=== PATIENT | female | born 1955 | race Caucasian/White ===

== ENCOUNTER 2018-04-17 19:19 | Inpatient (IN) ==
--- NOTE | 2018-04-17 20:56 | XR ---
EXAM DATE: 04/17/2018 8:51 PM EST AGE/SEX: 62 years / Female INDICATIONS: Pain in foot. Patient had fall. CLINICAL DATA: This is the patient's initial encounter. Patient reports that signs and symptoms have been present for 1 day and indicates a pain score of 9/10. MEDICAL/SURGICAL HISTORY: None. None. COMPARISON: [facility] – [place], TIBIA FIBULA RIGHT 2V, 04/17/2018. . FINDINGS: Bony structures are intact and in normal alignment. There is mild osteopenia and osteoarthritic nunez e. Soft tissues are unremarkable. No radiopaque foreign bodies seen. CONCLUSION: 1. No acute fracture or malalignment. 2. Osteopenia and mild osteoarthritic change. Electronically signed by: Ehsan Owens MD 04/17/2018 8:54 PM EST
--- NOTE | 2018-04-17 20:59 | ED ---
HPI General Chief Complaint: Fall Stated Complaint: Fall Time Seen by Provider: 04/17/18 19:54 Source: patient Mode of arrival: EMS Limitations: no limitations History of Present Illness HPI Narrative: 62-year-old female with history of diabetes and hypothyroidism presents the emergency room for evaluation of right lower extremity pain after mechanical fall just prior to arrival. Patient states she walked on the edge of her pool when her ankle twisted. She slipped and fell into the pool twisting her knee and jamming her right hip. States her pain was so severe that she had to stay in the pool for an hour before her family member came home. She has not been able to put any weight on the leg. Patient states when she tries to move her hip she has a crunching sensation/sound. Pain in the foot is localized to the arch and pain in the ankle is localized to the lateral malleolus. She has some pain in the knee on the lateral aspect. She has not taken anything for symptoms. She was transported via EMS and declined pain medication during transport. Denies paresthesias. MD complaint: Reports fall Onset (ago): hour(s) Fall from: standing Fall witnessed: no Place fall occurred: home Loss of consciousness: none Prolonged down time: no Symptoms prior to fall: Reports none Context: Reports tripped/slipped Location of injury: Reports pelvis Location of injury - extremities: Right: knee, lower leg, ankle and foot Severity: severe Quality: Reports sharp, stabbing and aching Associated symptoms (after fall): Reports denies Related Data Home Medications Medication Instructions Recorded Confirmed atorvastatin 0 mg PO DAILY 04/17/18 04/17/18 glipizide 4 mg PO DAILY 04/17/18 04/17/18 insulin aspart U-100 [Novolog 30 unit SUBCUT TID 04/17/18 04/17/18 U-100 Insulin aspart] insulin degludec [Tresiba 150 unit SUBCUT DAILY 04/17/18 04/17/18 FlexTouch U-100] levothyroxine 250 mcg PO DAILY 04/17/18 04/17/18 losartan 0 mg PO DAILY 04/17/18 04/17/18 metformin 1,000 mg PO BID 04/17/18 04/17/18 Allergies Allergy/AdvReac Type Severity Reaction Status Date / Time No Known Allergies Allergy Verified 04/17/18 20:10 Review of Systems ROS: all other systems reviewed are negative PMFSH Medical History Medical History Diabetes (Acute) Hypocholesteremia (Acute) Hypothyroid (Acute) Social History Social History Substance History: No History of Abuse Second Hand Smoke Exposure: No Smoking Status: Never smoker How Often Do You Have a Drink Containing Alcohol: Never Recent Travel in [facility] within the Last 8 Weeks: No Recent Out of Country Travel within the Last 8 Weeks: No Immunization History Tetanus Immunization: Unsure Exam Narrative Exam Narrative: GENERAL: Well-nourished, well-developed female no acute distress. Afebrile. SKIN: Focused skin assessment warm/dry. Moderate ecchymosis of the right medial foot and right lateral knee. HEAD: Normocephalic. EYES: No scleral icterus. No injection or drainage. NECK: Supple, trachea midline. No JVD or lymphadenopathy. CARDIOVASCULAR: Regular rate and rhythm without murmurs, gallops, or rubs. RESPIRATORY: Breath sounds equal bilaterally. No accessory muscle use. GASTROINTESTINAL: Abdomen soft, non-tender, nondistended. MUSCULOSKELETAL: No cyanosis. Pain with any range of motion of the right lower extremity. Mild tenderness to palpation of the midfoot, lateral malleolus, lateral knee, and lateral hip. 2+ dorsalis pedis pulse in the right. Right leg is slightly externally rotated and slightly shortened. Course Initial Documented Vital Signs Pulse Rate 70 04/17/18 19:45 Respiratory Rate 18 04/17/18 19:45 Blood Pressure 146/86 H 04/17/18 19:45 Pulse Oximetry 98 04/17/18 19:45 Last Documented Vital Signs Pulse Rate 72 04/18/18 06:32 Respiratory Rate 18 04/18/18 06:32 Blood Pressure 128/60 04/18/18 06:32 Pulse Oximetry 98 04/18/18 06:37 Medical Decision Making MDM Narrative Medical decision making narrative: 62-year-old female presents the emergency room for evaluation of right lower extremity pain after chemical fall just prior to arrival. Patient slipped on the side of the pool twisting her ankle, knee, and fell into the pool jamming her right hip. States she has not been able to put any weight on the leg since then. Right lower extremity is neurovascularly intact with 2+ dorsalis pedis pulse. She has limited range of motion of the right lower extremity secondary to pain. She has some moderate edema over the lateral malleolus with ecchymosis of the medial foot and lateral knee. X-rays of the foot, tibia/fibula, and hip are ordered and pending. Patient signed out to nighttime provider. 21:46 PM. Patient was seen by my traffic assistant and signed out to me. I spoke with Dr. Milton Chery, orthopedist weed control inspector. Advise admission and CT scan of the hip and n.p.o. after midnight. Possible surgery in a.m. Medical Screen Exam Complete: Yes Emergency Medical Condition: Yes Differential Diagnosis Differential Diagnosis: Fracture, sprain, strain, contusion, tendon injury Lab Data Result diagrams: 04/18/18 03:54 04/18/18 03:54 Lab Results 04/17/18 04/17/18 04/17/18 Range/Units 21:42 21:42 21:42 WBC 6.2 (4.0-11.0) th/mm3 RBC 3.75 L (4.00-5.30) mil/mm3 Hgb 12.3 (11.6-15.3) gm/dL Hct 35.1 (35.0-46.0) % MCV 93.7 (80.0-100.0) fL MCH 32.8 (27.0-34.0) pg MCHC 35.0 (32.0-36.0) % RDW 13.8 (11.6-17.2) % Plt Count 153 (150-450) th/mm3 MPV 8.6 (7.0-11.0) fL Neut % (Auto) 76.1 H (16.0-70.0) % Lymph % (Auto) 14.7 (9.0-44.0) % [place] % (Auto) 8.2 H (0.0-8.0) % Eos % (Auto) 0.5 (0.0-4.0) % Baso % (Auto) 0.5 (0.0-2.0) % Neut # (Auto) 4.7 (1.8-7.7) th/mm3 Lymph # (Auto) 0.9 L (1.0-4.8) th/mm3 [place] # (Auto) 0.5 (0.0-0.9) th/mm3 Eos # (Auto) 0.0 (0.0-0.4) th/mm3 Baso # (Auto) 0.0 (0.0-0.2) th/mm3 WBC Differential . Differential Comment Auto diff final PT 11.8 H (9.8-11.6) sec INR 1.2 Ratio APTT 23.1 L (23.4-31.7) sec Sodium 142 (136-145) meq/L Potassium 4.1 (3.5-5.1) meq/L Chloride 107 (98-107) meq/L Carbon Dioxide 29.2 (21.0-32.0) meq/L Anion Gap 6 (5-15) meq/L BUN 13 (7-18) mg/dL Creatinine 0.69 (0.50-1.00) mg/dL Estimated GFR 86 L (>89) mL/min Random Glucose 144 H (74-106) mg/dL Calcium 8.8 (8.5-10.1) mg/dL Total Bilirubin 0.7 (0.2-1.0) mg/dL AST 103 H (15-37) U/L ALT 94 H (10-53) U/L Alkaline Phosphatase 129 H (45-117) U/L Total Protein 7.8 (6.4-8.2) g/dL Albumin 3.2 L (3.4-5.0) g/dL Blood Type Blood Type Recheck Antibody Screen 04/17/18 04/18/18 04/18/18 Range/Units 21:42 03:54 03:54 WBC 5.5 (4.0-11.0) th/mm3 RBC 3.86 L (4.00-5.30) mil/mm3 Hgb 12.4 (11.6-15.3) gm/dL Hct 36.7 (35.0-46.0) % MCV 95.3 (80.0-100.0) fL MCH 32.2 (27.0-34.0) pg MCHC 33.8 (32.0-36.0) % RDW 13.6 (11.6-17.2) % Plt Count 152 (150-450) th/mm3 MPV 8.4 (7.0-11.0) fL Neut % (Auto) 58.5 (16.0-70.0) % Lymph % (Auto) 28.8 (9.0-44.0) % [place] % (Auto) 11.0 H (0.0-8.0) % Eos % (Auto) 1.3 (0.0-4.0) % Baso % (Auto) 0.4 (0.0-2.0) % Neut # (Auto) 3.2 (1.8-7.7) th/mm3 Lymph # (Auto) 1.6 (1.0-4.8) th/mm3 [place] # (Auto) 0.6 (0.0-0.9) th/mm3 Eos # (Auto) 0.1 (0.0-0.4) th/mm3 Baso # (Auto) 0.0 (0.0-0.2) th/mm3 WBC Differential . Differential Comment Auto diff final PT 11.8 H (9.8-11.6) sec INR 1.2 Ratio APTT (23.4-31.7) sec Sodium (136-145) meq/L Potassium (3.5-5.1) meq/L Chloride (98-107) meq/L Carbon Dioxide (21.0-32.0) meq/L Anion Gap (5-15) meq/L BUN (7-18) mg/dL Creatinine (0.50-1.00) mg/dL Estimated GFR (>89) mL/min Random Glucose (74-106) mg/dL Calcium (8.5-10.1) mg/dL Total Bilirubin (0.2-1.0) mg/dL AST (15-37) U/L ALT (10-53) U/L Alkaline Phosphatase (45-117) U/L Total Protein (6.4-8.2) g/dL Albumin (3.4-5.0) g/dL Blood Type A Positive Blood Type Recheck Required Antibody Screen Negative 04/18/18 Range/Units 03:54 WBC (4.0-11.0) th/mm3 RBC (4.00-5.30) mil/mm3 Hgb (11.6-15.3) gm/dL Hct (35.0-46.0) % MCV (80.0-100.0) fL MCH (27.0-34.0) pg MCHC (32.0-36.0) % RDW (11.6-17.2) % Plt Count (150-450) th/mm3 MPV (7.0-11.0) fL Neut % (Auto) (16.0-70.0) % Lymph % (Auto) (9.0-44.0) % [place] % (Auto) (0.0-8.0) % Eos % (Auto) (0.0-4.0) % Baso % (Auto) (0.0-2.0) % Neut # (Auto) (1.8-7.7) th/mm3 Lymph # (Auto) (1.0-4.8) th/mm3 [place] # (Auto) (0.0-0.9) th/mm3 Eos # (Auto) (0.0-0.4) th/mm3 Baso # (Auto) (0.0-0.2) th/mm3 WBC Differential Differential Comment PT (9.8-11.6) sec INR Ratio APTT (23.4-31.7) sec Sodium 143 (136-145) meq/L Potassium 3.7 (3.5-5.1) meq/L Chloride 107 (98-107) meq/L Carbon Dioxide 28.6 (21.0-32.0) meq/L Anion Gap 7 (5-15) meq/L BUN 11 (7-18) mg/dL Creatinine 0.53 (0.50-1.00) mg/dL Estimated GFR Greater than 89 (>89) mL/min Random Glucose 85 (74-106) mg/dL Calcium 8.6 (8.5-10.1) mg/dL Total Bilirubin (0.2-1.0) mg/dL AST (15-37) U/L ALT (10-53) U/L Alkaline Phosphatase (45-117) U/L Total Protein (6.4-8.2) g/dL Albumin (3.4-5.0) g/dL Blood Type Blood Type Recheck Antibody Screen Imaging Data Radiologist's impression: Foot X-Ray 04/17/18 20:10 CONCLUSION: 1. No acute fracture or malalignment. 2. Osteopenia and mild osteoarthritic change. Hip X-Ray 04/17/18 20:10 CONCLUSION: Nondisplaced fracture involving the greater trochanteric fragment which extends into the intertrochanteric region. Tibia/Fibula X-Ray 04/17/18 20:10 CONCLUSION: 1. No acute fracture or malalignment. 2. Osteoarthritic change in the knee. Ankle X-Ray 04/17/18 21:07 CONCLUSION: Diffuse soft tissue prominence with no acute fracture or malalignment. Chest X-Ray 04/17/18 21:13 CONCLUSION: No acute cardiopulmonary disease. Hip CT 04/17/18 21:34 CONCLUSION: 1. Nondisplaced fracture through the base of the greater trochanter. 2. Great 1 anterior spondylolisthesis of L5 on S1 of approximately 1 cm with apparent chronic pars defects. Discharge Plan Discharge Disposition Patient Disposition: 30 Still Patient Discharge Details Diagnosis: Fracture of femur, right, closed, Sprain of ankle, right Physicians Team ED Provider: Will Dubose ED Midlevel Provider: Deborah Guzman Primary Care Provider: Marcellus Knight Attending Provider: Vinh Madison Other Providers: Milton Chery Status ED Status: Left Department Discharge Information Discharge Date/Time: 04/18/18 06:50
--- NOTE | 2018-04-17 20:59 | XR ---
EXAM DATE: 04/17/2018 8:52 PM EST AGE/SEX: 62 years / Female INDICATIONS: Pain in right hip. Patient had fall. CLINICAL DATA: This is the patient's initial encounter. Patient reports that signs and symptoms have been present for 1 day and indicates a pain score of 9/10. MEDICAL/SURGICAL HISTORY: None. None. COMPARISON: No prior exams available for comparison. FINDINGS: AP and cross table leg lateral views of the right hip were obtained as well as an AP view of the pelv is. This demonstrating a subtle nondisplaced fracture involving the greater trochanteric fragment whi ch extends into the intertrochanteric region. The femoral head and acetabulum are intact. There is mi ld osteopenia. CONCLUSION: Nondisplaced fracture involving the greater trochanteric fragment which extends into the intertrochan teric region. Electronically signed by: Ehsan Owens MD 04/17/2018 8:57 PM EST
--- NOTE | 2018-04-17 21:00 | XR ---
EXAM DATE: 04/17/2018 8:54 PM EST AGE/SEX: 62 years / Female INDICATIONS: Pain in right tibia/fibula. Patient had fall. CLINICAL DATA: This is the patient's initial encounter. Patient reports that signs and symptoms have been present for 1 day and indicates a pain score of 9/10. MEDICAL/SURGICAL HISTORY: None. None. COMPARISON: No prior exams available for comparison. FINDINGS: Bony structures are intact and in normal alignment. There is mild osteopenia. Degenerative changes ar e noted in the medial compartment the knee with joint space loss, sclerosis and mild spurring. Soft t issues are unremarkable. No radiopaque foreign bodies seen. CONCLUSION: 1. No acute fracture or malalignment. 2. Osteoarthritic change in the knee. Electronically signed by: Ehsan Owens MD 04/17/2018 8:58 PM EST
--- NOTE | 2018-04-17 21:36 | XR ---
EXAM DATE: 04/17/2018 9:33 PM EST AGE/SEX: 62 years / Female INDICATIONS: Evaluate for pneumonia, pneumothorax, or communicable disease. Pre-op right hip surgery . CLINICAL DATA: This is the patient's initial encounter. Patient reports that signs and symptoms have been present for 1 day and indicates a pain score of 0/10. MEDICAL/SURGICAL HISTORY: None. None. COMPARISON: No prior exams available for comparison. FINDINGS: A single AP view of the chest demonstrates the lungs to be symmetrically aerated without evidence of mass, infiltrate or effusion. The cardiomediastinal contours are unremarkable. Osseous structures a re intact. There are multiple overlying electrocardiogram leads. CONCLUSION: No acute cardiopulmonary disease. Electronically signed by: Ehsan Owens MD 04/17/2018 9:34 PM EST
--- NOTE | 2018-04-17 21:42 | XR ---
EXAM DATE: 04/17/2018 9:37 PM EST AGE/SEX: 62 years / Female INDICATIONS: Right lateral ankle pain post fall today CLINICAL DATA: This is the patient's initial encounter. Patient reports that signs and symptoms have been present for 1 day and indicates a pain score of 8/10. MEDICAL/SURGICAL HISTORY: None. None. COMPARISON: [facility], FOOT COMPLETE RIGHT 3V, 04/17/2018. . FINDINGS: Bony structures are intact and in normal alignment. Joints are intact without dislocation or signifi cant arthropathy. Osseous density is normal. There is diffuse soft tissue prominence. No radiopaque foreign bodies seen. CONCLUSION: Diffuse soft tissue prominence with no acute fracture or malalignment. Electronically signed by: Ehsan Owens MD 04/17/2018 9:40 PM EST
[2018-04-17 22:04] LABS: Baso % (Auto) 0.5 % (0.0-2.0); Eos % (Auto) 0.5 % (0.0-4.0); Hematocrit 35.1 % (35.0-46.0); Hemoglobin 12.3 gm/dL (11.6-15.3); Lymph # (Auto) 0.9 th/mm3 (1.0-4.8); Lymph % (Auto) 14.7 % (9.0-44.0); Mean Corpuscular Hemoglobin 32.8 pg (27.0-34.0); Mean Corpuscular Volume 93.7 fL (80.0-100.0); Mean Platelet Volume 8.6 fL (7.0-11.0); Mono # (Auto) 0.5 th/mm3 (0.0-0.9); Mono % (Auto) 8.2 % (0.0-8.0); Neut # (Auto) 4.7 th/mm3 (1.8-7.7); Neut % (Auto) 76.1 % (16.0-70.0); Platelet Count 153 th/mm3 (150-450); Red Blood Count 3.75 mil/mm3 (4.00-5.30); Red Cell Distribution Width 13.8 % (11.6-17.2); White Blood Count 6.2 th/mm3 (4.0-11.0)
[2018-04-17 22:14] LABS: Activated Partial Thrombo Time 23.1 sec (23.4-31.7); INR 1.2 Ratio; Prothrombin Time 11.8 sec (9.8-11.6)
[2018-04-17] MEDS ORDERED: Acetaminophen 325 MG Tablet PO PRN (22:18)
--- NOTE | 2018-04-17 22:22 | CT ---
EXAM DATE: 04/17/2018 10:15 PM EST AGE/SEX: 62 years / Female INDICATIONS: Trauma; fall. Right hip fracture. CLINICAL DATA: This is the patient's initial encounter. Patient reports that signs and symptoms have been present for 1 day and indicates a pain score of 6/10. MEDICAL/SURGICAL HISTORY: Diabetes. Hypothyroidism. None. RADIATION DOSE: 31.71 CTDI (mGy) COMPARISON: [facility], HIP RIGHT W AP PELVIS 2V, 04/17/2018. . TECHNIQUE: Multiple contiguous axial images were acquired using a multirow detector CT scanner witho ut contrast. Multiplanar reconstruction was performed in the sagittal and coronal planes. Using aut omated exposure control and adjustment of the mA and/or kV according to patient size, radiation dose was kept as low as reasonably achievable to obtain optimal diagnostic quality images. DICOM format i mage data is available electronically for review and comparison. FINDINGS: Bones: Again noted is a subtle nondisplaced fracture extending through the base of the greater troch anter. The femoral head and acetabulum are intact. The sacrum is intact. There is a grade 1 anterior spondylolisthesis of L5 on S1 of approximately 1 cm with apparent chronic pars defects.. Joints: No significant arthropathy or bony hypertrophy is seen. The articular surface of the femora l head is smooth. Soft Tissues: Unremarkable for a non-contrast study. Other: No foreign bodies seen. CONCLUSION: 1. Nondisplaced fracture through the base of the greater trochanter. 2. Great 1 anterior spondylolisthesis of L5 on S1 of approximately 1 cm with apparent chronic pars d efects. Electronically signed by: Ehsan Owens MD 04/17/2018 10:20 PM EST
[2018-04-17] MEDS ORDERED: Dextrose 50% in Water 50 ML Vial IV.PUSH PRN (22:25)
[2018-04-17 22:27] LABS: Alanine Aminotransferase 94 U/L (10-53); Albumin 3.2 g/dL (3.4-5.0); Anion Gap 6 meq/L (5-15); Aspartate Aminotransferase 103 U/L (15-37); Blood Urea Nitrogen 13 mg/dL (7-18); Calcium 8.8 mg/dL (8.5-10.1); Carbon Dioxide 29.2 meq/L (21.0-32.0); Chloride 107 meq/L (98-107); Glomerular Filtration Rate 86 mL/min (>89); Glucose,Random 144 mg/dL (74-106); Potassium 4.1 meq/L (3.5-5.1); Sodium 142 meq/L (136-145)
[2018-04-17 22:28] LABS: Alkaline Phosphatase 129 U/L (45-117); Total Protein 7.8 g/dL (6.4-8.2)
[2018-04-17] MEDS ORDERED: HYDROmorphone PF Inj 1 MG/ML Ampul IV.PUSH PRN (22:32)
[2018-04-17] MEDS: KCL 20 mEq/NACL 0.45% Inj 1,000 ML IV.CONT SCH (23:55)
[2018-04-18 04:30] LABS: Baso % (Auto) 0.4 % (0.0-2.0); Eos # (Auto) 0.1 th/mm3 (0.0-0.4); Eos % (Auto) 1.3 % (0.0-4.0); Hematocrit 36.7 % (35.0-46.0); Hemoglobin 12.4 gm/dL (11.6-15.3); Lymph # (Auto) 1.6 th/mm3 (1.0-4.8); Lymph % (Auto) 28.8 % (9.0-44.0); Mean Corpuscular HGB Conc 33.8 % (32.0-36.0); Mean Corpuscular Hemoglobin 32.2 pg (27.0-34.0); Mean Corpuscular Volume 95.3 fL (80.0-100.0); Mean Platelet Volume 8.4 fL (7.0-11.0); Mono # (Auto) 0.6 th/mm3 (0.0-0.9); Neut # (Auto) 3.2 th/mm3 (1.8-7.7); Neut % (Auto) 58.5 % (16.0-70.0); Platelet Count 152 th/mm3 (150-450); Red Blood Count 3.86 mil/mm3 (4.00-5.30); Red Cell Distribution Width 13.6 % (11.6-17.2); White Blood Count 5.5 th/mm3 (4.0-11.0)
[2018-04-18 04:40] LABS: INR 1.2 Ratio; Prothrombin Time 11.8 sec (9.8-11.6)
[2018-04-18 04:52] LABS: Anion Gap 7 meq/L (5-15); Blood Urea Nitrogen 11 mg/dL (7-18); Calcium 8.6 mg/dL (8.5-10.1); Carbon Dioxide 28.6 meq/L (21.0-32.0); Chloride 107 meq/L (98-107); Glomerular Filtration Rate Greater Than 89 mL/min (>89); Glucose,Random 85 mg/dL (74-106); Potassium 3.7 meq/L (3.5-5.1); Sodium 143 meq/L (136-145)
[2018-04-18] MEDS: Levothyroxine 100 MCG Tablet PO SCH (07:45)
[2018-04-18] MEDS: Senna/Docusate Sodium 8.6/50 MG Tablet PO SCH ×2 (09:00→21:18)
--- NOTE | 2018-04-18 09:29 | P.HPIM ---
History of Present Illness Primary Care Physician: Marcellus Knight History of Present Illness: This a 62-year-old female patient with a past medical history which includes cervical radiculopathy, chronic pain, degenerative disc disease, diverticulosis, endometrial hyperplasia, female stress incontinence, Mary Kate's thyroiditis, hyperlipidemia, known alcoholic hepatosteatosis and type 2 diabetes mellitus. Patient was in her normal state of health until mechanical fall. Patient states she walked on the edge of her pool when her ankle twisted. She slipped and fell into the pool twisting her knee and jamming her right hip. States her pain was so severe that she had to stay in the pool for an hour before her family member came home. She has not been able to put any weight on the leg. Patient states when she tries to move her hip she has a crunching sensation/sound. Pain in the foot is localized to the arch and pain in the ankle is localized to the lateral malleolus. She has some pain in the knee on the lateral aspect. She has not taken anything for symptoms. She was transported via EMS and declined pain medication during transport. Denies paresthesias. Patient also denies fevers chills nausea vomiting diarrhea constipation shortness of breath or chest pain. PMH: cervical radiculopathy, chronic pain, degenerative disc disease, diverticulosis , endometrial hyperplasia, female stress incontinence, Mary Kate's thyroiditis, hyperlipidemia, known alcoholic hepatosteatosis and type 2 diabetes mellitus PSxH: Cholecystectomy, colonoscopy, D&C, cervical spine and injection, tubal ligation , varicose vein ligation FMH: Reviewed and noncontributory Social history: Currently lives in a private residence Rare EtOH use Denies tobacco use Inpatient Certification Inpatient Certification: I certify that the inpatient services were ordered in accordance with Medicare regulations governing the order. This includes certification that hospital inpatient services are reasonable and necessary and in the case of services not specified as inpatient-only under 42 CFR 419.22(n), that they are appropriately provided as inpatient services in accordance to with the 2-midnight benchmark under 43 CFR 412.3(e) Estimated Total Length of Stay (Days): 3 Plans for Post Hospital Care: Not yet determined Medications and Allergies Allergies Allergy/AdvReac Type Severity Reaction Status Date / Time No Known Allergies Allergy Verified 04/17/18 20:10 Home Medications Medication Instructions Recorded Confirmed Type atorvastatin 80 mg PO DAILY 04/17/18 04/18/18 History glipizide 4 mg PO DAILY 04/17/18 04/17/18 History insulin aspart U-100 [Novolog 30 unit SUBCUT TID 04/17/18 04/17/18 History U-100 Insulin aspart] insulin degludec [Tresiba 150 unit SUBCUT DAILY 04/17/18 04/17/18 History FlexTouch U-100] levothyroxine 200 mcg PO DAILY 04/17/18 04/18/18 History losartan 50 mg PO DAILY 04/17/18 04/18/18 History metformin 1,000 mg PO BID 04/17/18 04/17/18 History Active Medications: Active Medications Acetaminophen (Tylenol) 650 mg PO Q4H PRN PRN Reason: Temp > 100.4 Hydrocodone Bitart/Acetaminophen ([place] 5/325) 1 tab PO Q4H PRN PRN Reason: PAIN SCALE 1 TO 5 Al Hydroxide/Mg Hydroxide (Milk Of Magnesia Liq) 30 ml PO Q12H PRN PRN Reason: Mild Constipation Atorvastatin Calcium (Lipitor) 20 mg PO DAILY [facility] Dextrose (D50w Vial) 50 ml IV.PUSH UNSCH PRN PRN Reason: PER HYPOGLYCEMIA PROTOCOL Glucagon (Glucagon Inj) 1 mg OTHER PRN PRN PRN Reason: for Hypoglycemia Protocol Hydromorphone HCl (Dilaudid Pf Inj) 0.5 mg IV.PUSH Q4H PRN PRN Reason: PAIN SCALE 6 TO 10 Potassium Chloride/Sodium Chloride (Potassium Chlor 20 Meq/Nacl 0.45% Inj) 1, 000 mls @ 84 mls/hr IV.CONT .[id number] [facility] Last Admin: 04/17/18 23:55 Dose: Not Given Insulin Aspart (Novolog Insulin Correctional Sugar Inj) 0 unit SQ ACHS [facility]; Protocol Levothyroxine Sodium (Synthroid) 250 mcg PO DAILY@0600 [facility] Losartan Potassium (Cozaar) 25 mg PO DAILY [facility] Miscellaneous (Pill Splitter) 1 each OTHER UNSCH PRN PRN Reason: SEE LABEL COMMENTS Ondansetron HCl (Zofran Inj) 4 mg IV.PUSH Q6H PRN PRN Reason: NAUSEA OR VOMITING Senna/Docusate Sodium (Guerline-Colace) 1 tab PO BID [facility] Sodium Chloride (Ns Flush) 2 ml IV.FLUSH PRN PRN PRN Reason: FLUSH AFTER USING IV ACCESS Physical Exam Vital signs: Last Vital Signs Pulse 72 04/18/18 06:32 Resp 18 04/18/18 06:32 BP 128/60 04/18/18 06:32 Pulse Ox 98 04/18/18 06:37 Narrative: GENERAL: This is a well-nourished, well-developed patient, in no apparent distress. CARDIOVASCULAR: Regular rate and rhythm without murmurs, gallops, or rubs. RESPIRATORY: Clear to auscultation. Breath sounds equal bilaterally. No wheezes , rales, or rhonchi. GASTROINTESTINAL: Abdomen soft, non-tender, nondistended. Normal active bowel sounds MUSCULOSKELETAL: NEURO: Alert & Oriented Results Labs CBC & Chem 7: 04/18/18 03:54 04/18/18 03:54 Caprini VTE Risk Assessment Caprini VTE Risk Assessment: Moderate/High Risk (score >= 2) Caprini Risk Assessment Model: Point Value = 1 Point Value = 2 Point Value = 3 Point Value = 5 Age 41-60 Minor surgery BMI > 25 kg/m2 Swollen legs Varicose veins or History of unexplained or recurrent spontaneous Oral contraceptives or hormone replacement Sepsis (< 1 month) Serious lung disease, including pneumonia (< 1 month) Abnormal pulmonary function Acute myocardial infarction Congestive heart failure (< 1 month) History of inflammatory bowel disease Medical patient at bed rest Age 61-74 Arthroscopic surgery Major open surgery (> 45 min) Laparoscopic surgery (> 45 min) Malignancy Confined to bed (> 72 hours) Immobilizing plaster cast Central venous access Age >= 75 History of VTE Family history of VTE Factor V Leiden Prothrombin [id number] Lupus anticoagulant Anticardiolipin antibodies Elevated serum homocysteine Heparin-induced thrombocytopenia Other congenital or acquired thrombophilia Stroke (< 1 month) Elective arthroplasty Hip, pelvis, or leg fracture Acute spinal cord injury (< 1 month) Prophylaxis Regimen: Total Risk Factor Score Risk Level Prophylaxis Regimen 0-1 Low Early ambulation 2 Moderate Order ONE of the following: *Sequential Compression Device (SCD) *Heparin 5000 units SQ BID 3-4 Higher Order ONE of the following medications: *Heparin 5000 units SQ TID *Enoxaparin/Lovenox 40 mg SQ daily (WT < 150 kg, CrCl > 30 mL/min) *Enoxaparin/Lovenox 30 mg SQ daily (WT < 150 kg, CrCl > 10-29 mL/min) *Enoxaparin/Lovenox 30 mg SQ BID (WT < 150 kg, CrCl > 30 mL/min) AND/OR *Sequential Compression Device (SCD) 5 or more Highest Order ONE of the following medications: *Heparin 5000 units SQ TID (Preferred with Epidurals) *Enoxaparin/Lovenox 40 mg SQ daily (WT < 150 kg, CrCl > 30 mL/min) *Enoxaparin/Lovenox 30 mg SQ daily (WT < 150 kg, CrCl > 10-29 mL/min) *Enoxaparin/Lovenox 30 mg SQ BID (WT < 150 kg, CrCl > 30 mL/min) AND *Sequential Compression Device (SCD) Assessment and Plan Plan This a 62-year-old female patient with a past medical history which includes cervical radiculopathy, chronic pain, degenerative disc disease, diverticulosis , female stress incontinence, Mary Kate's thyroiditis, hyperlipidemia, nonalcoholic hepatosteatosis and type 2 diabetes mellitus. Patient was in her normal state of health until mechanical fall. Patient states she walked on the edge of her pool when her ankle twisted. She slipped and fell into the pool twisting her knee and jamming her right hip. States her pain was so severe that she had to stay in the pool for an hour before her family member came home. She has not been able to put any weight on the leg. R femur fracture Foot X-Ray 04/17/18 1. No acute fracture or malalignment. 2. Osteopenia and mild osteoarthritic change. Hip X-Ray 04/17/18 Nondisplaced fracture involving the greater trochanteric fragment which extends into the intertrochanteric region. Tibia/Fibula X-Ray 04/17/18 1. No acute fracture or malalignment. 2. Osteoarthritic change in the knee. Ankle X-Ray 04/17/18 Diffuse soft tissue prominence with no acute fracture or malalignment. Hip CT 04/17/18 1. Nondisplaced fracture through the base of the greater trochanter. 2. Great 1 anterior spondylolisthesis of L5 on S1 of approximately 1 cm with apparent chronic pars defects. NPO Consult to Orthopedic surgery Mary Kate's thyroiditis Continue home Synthroid 200 mcg daily Hyperlipidemia Continue home atorvastatin 80 mg at bedtime Diabetes mellitus type 2 At home patient takes Amaryl 5 mg at bedtime and metformin 1000 mg twice daily we will hold oral diabetic medication at this time Patient also takes NovoLog 30 units subcu 3 times daily and [employer] 150 units subcu daily will hold at this time as patient is NPO Accu-Cheks AC at bedtime with sliding scale insulin coverage
[2018-04-18] MEDS: Insulin NovoLOG Aspart Correctional Sugar Inj SQ SCH ×5 (09:49→21:18)
--- NOTE | 2018-04-18 10:28 | ECG ---
Date Performed: 04/17/2018 Time Performed: 21:30:57 PTAGE: 62 years EKG: Sinus rhythm NORMAL ECG NO PREVIOUS TRACING DOCTOR: Phan Arteaga Interpretating Date/Time 04/18/2018 10:26:56
[2018-04-18] MEDS: KCL 20 mEq/NACL 0.45% Inj 1,000 ML IV.CONT SCH (10:40)
--- NOTE | 2018-04-18 12:41 | P.CONOP ---
[facility] Orthopedics Consult Note - [facility] Consult date: 04/18/18 Requesting physician: Marge Arias Consult reason: fracture Chief complaint: Fracture Right Femur Narrative: History of Present Illness: This a 62-year-old female patient with a past medical history which includes cervical radiculopathy, chronic pain, degenerative disc disease, diverticulosis, endometrial hyperplasia, female stress incontinence, Mary Kate's thyroiditis, hyperlipidemia, known alcoholic hepatosteatosis and type 2 diabetes mellitus. Patient was in her normal state of health until mechanical fall. Patient states she walked on the edge of her pool when her ankle twisted. She slipped and fell into the pool twisting her knee and jamming her right hip. States her pain was so severe that she had to stay in the pool for an hour before her family member came home. She has not been able to put any weight on the leg. Patient states when she tries to move her hip she has a crunching sensation/sound. Pain in the foot is localized to the arch and pain in the ankle is localized to the lateral malleolus. She has some pain in the knee on the lateral aspect. She has not taken anything for symptoms. She was transported via EMS and declined pain medication during transport. Denies paresthesias. Patient also denies fevers chills nausea vomiting diarrhea constipation shortness of breath or chest pain. I have been asked to see the patient in consultation regarding her right hip fracture Review of Systems All other systems reviewed negative except as stated in [facility] - History History Provided By: Patient - Medical History Medical History: Medical History (Last Reviewed 04/18/18 @ 10:37 by Cecelia Lopez) Diabetes Hypocholesteremia Hypothyroid - Tobacco History Second Hand Smoke Exposure: No Smoking Status: Never smoker - Alcohol History How Often Do You Have a Drink Containing Alcohol: Never - Substance Use History Substance History: No History of Abuse - Travel History Recent Travel in the [place] Within the Last 8 Weeks: No Recent Travel Out of the Country Within the Last 8 Weeks: No - Immunization History Tetanus Immunization: Unsure Hx Influenza Vaccine This Season: Yes Medications and Allergies Active Medications: Active Medications Acetaminophen (Tylenol) 650 mg PO Q4H PRN PRN Reason: Temp > 100.4 Hydrocodone Bitart/Acetaminophen ([place] 5/325) 1 tab PO Q4H PRN PRN Reason: PAIN SCALE 1 TO 5 Al Hydroxide/Mg Hydroxide (Milk Of Annabel Hung) 30 ml PO Q12H PRN PRN Reason: Mild Constipation Atorvastatin Calcium (Lipitor) 20 mg PO DAILY [facility] Last Admin: 04/18/18 09:00 Dose: Not Given Dextrose (D50w Vial) 50 ml IV.PUSH UNSCH PRN PRN Reason: PER HYPOGLYCEMIA PROTOCOL Glucagon (Glucagon Inj) 1 mg OTHER PRN PRN PRN Reason: for Hypoglycemia Protocol Hydromorphone HCl (Dilaudid Pf Inj) 0.5 mg IV.PUSH Q4H PRN PRN Reason: PAIN SCALE 6 TO 10 Potassium Chloride/Sodium Chloride (Potassium Chlor 20 Meq/Nacl 0.45% Inj) 1, 000 mls @ 84 mls/hr IV.CONT .[id number] [facility] Last Admin: 04/17/18 23:55 Dose: Not Given Insulin Aspart (Novolog Insulin Correctional Sugar Inj) 0 unit SQ ACHS [facility]; Protocol Last Admin: 04/18/18 09:49 Dose: Not Given Levothyroxine Sodium (Synthroid) 250 mcg PO DAILY@0600 [facility] Last Admin: 04/18/18 07:45 Dose: Not Given Losartan Potassium (Cozaar) 25 mg PO DAILY [facility] Last Admin: 04/18/18 09:00 Dose: Not Given Miscellaneous (Pill Splitter) 1 each OTHER UNSCH PRN PRN Reason: SEE LABEL COMMENTS Ondansetron HCl (Zofran Inj) 4 mg IV.PUSH Q6H PRN PRN Reason: NAUSEA OR VOMITING Senna/Docusate Sodium (Guerline-Colace) 1 tab PO BID [facility] Last Admin: 04/18/18 09:00 Dose: Not Given Sodium Chloride (Ns Flush) 2 ml IV.FLUSH PRN PRN PRN Reason: FLUSH AFTER USING IV ACCESS Allergies Allergy/AdvReac Type Severity Reaction Status Date / Time No Known Allergies Allergy Verified 04/17/18 20:10 Home Medications Medication Instructions Recorded Confirmed Type atorvastatin 80 mg PO DAILY 04/17/18 04/18/18 History glipizide 4 mg PO DAILY 04/17/18 04/17/18 History insulin aspart U-100 [Novolog 30 unit SUBCUT TID 04/17/18 04/17/18 History U-100 Insulin aspart] insulin degludec [Tresiba 150 unit SUBCUT DAILY 04/17/18 04/17/18 History FlexTouch U-100] levothyroxine 200 mcg PO DAILY 04/17/18 04/18/18 History losartan 50 mg PO DAILY 04/17/18 04/18/18 History metformin 1,000 mg PO BID 04/17/18 04/17/18 History Exam Vital signs: Vital Signs 04/17/18 19:45 04/18/18 00:36 04/18/18 06:32 Temperature Pulse Rate 70 69 72 Respiratory Rate 18 18 Blood Pressure 146/86 H 121/57 L 128/60 Pulse Oximetry 98 98 04/18/18 06:37 04/18/18 08:00 04/18/18 12:00 Temperature 99.0 F 99.1 F Pulse Rate 69 76 Respiratory Rate 18 18 Blood Pressure 121/59 L 123/60 Pulse Oximetry 98 93 L 95 Intake & Output 04/17/18 04/18/18 04/18/18 18:59 06:59 18:59 Output Total 200 / 200 Balance -200 / -200 Weight 99.79 kg 99.79 kg Output: Urine 200 / 200 Other: # Voids 1 Weight On Admission 99.79 kg Narrative: HEENT: Normocephalic atraumatic pupils equal round reactive. NECK: Supple. No abnormal masses. Full range of motion. CHEST: Clear to auscultation with no rales or rhonchi's or wheezes. HEART: Regular rate and rhythm. No murmurs. ABDOMEN: Soft, nontender, no masses. Normal active bowel sounds. GENITOURINARY: Deferred. MUSCULOSKELETAL: Right hip is not in [place]'s traction. Mild swelling. Mild pain with range of motion. No significant ecchymosis. No skin breakdown. No calf tenderness. Dorsalis pedis 1+. Sensation is normal. Results - Labs Result Diagrams: 04/18/18 03:54 04/18/18 03:54 Labs: Laboratory Results - last 24 hr 04/17/18 04/17/18 04/17/18 21:42 21:42 21:42 WBC 6.2 RBC 3.75 L Hgb 12.3 Hct 35.1 MCV 93.7 MCH 32.8 MCHC 35.0 RDW 13.8 Plt Count 153 MPV 8.6 Neut % (Auto) 76.1 H Lymph % (Auto) 14.7 [place] % (Auto) 8.2 H Eos % (Auto) 0.5 Baso % (Auto) 0.5 Neut # (Auto) 4.7 Lymph # (Auto) 0.9 L [place] # (Auto) 0.5 Eos # (Auto) 0.0 Baso # (Auto) 0.0 WBC Differential . Differential Comment Auto diff final PT 11.8 H INR 1.2 APTT 23.1 L Sodium 142 Potassium 4.1 Chloride 107 Carbon Dioxide 29.2 Anion Gap 6 BUN 13 Creatinine 0.69 Estimated GFR 86 L POC Glucose Random Glucose 144 H Calcium 8.8 Total Bilirubin 0.7 AST 103 H ALT 94 H Alkaline Phosphatase 129 H Total Protein 7.8 Albumin 3.2 L Blood Type Blood Type Recheck Antibody Screen 04/17/18 04/18/18 04/18/18 21:42 03:54 03:54 WBC 5.5 RBC 3.86 L Hgb 12.4 Hct 36.7 MCV 95.3 MCH 32.2 MCHC 33.8 RDW 13.6 Plt Count 152 MPV 8.4 Neut % (Auto) 58.5 Lymph % (Auto) 28.8 [place] % (Auto) 11.0 H Eos % (Auto) 1.3 Baso % (Auto) 0.4 Neut # (Auto) 3.2 Lymph # (Auto) 1.6 [place] # (Auto) 0.6 Eos # (Auto) 0.1 Baso # (Auto) 0.0 WBC Differential . Differential Comment Auto diff final PT 11.8 H INR 1.2 APTT Sodium Potassium Chloride Carbon Dioxide Anion Gap BUN Creatinine Estimated GFR POC Glucose Random Glucose Calcium Total Bilirubin AST ALT Alkaline Phosphatase Total Protein Albumin Blood Type A Positive Blood Type Recheck Required Antibody Screen Negative 04/18/18 04/18/18 04/18/18 03:54 09:19 12:20 WBC RBC Hgb Hct MCV MCH MCHC RDW Plt Count MPV Neut % (Auto) Lymph % (Auto) [place] % (Auto) Eos % (Auto) Baso % (Auto) Neut # (Auto) Lymph # (Auto) [place] # (Auto) Eos # (Auto) Baso # (Auto) WBC Differential Differential Comment PT INR APTT Sodium 143 Potassium 3.7 Chloride 107 Carbon Dioxide 28.6 Anion Gap 7 BUN 11 Creatinine 0.53 Estimated GFR Greater than 89 POC Glucose 122 H 103 Random Glucose 85 Calcium 8.6 Total Bilirubin AST ALT Alkaline Phosphatase Total Protein Albumin Blood Type Blood Type Recheck Antibody Screen - Diagnostic results Imaging: Impressions Foot X-Ray 04/17/18 20:10 CONCLUSION: 1. No acute fracture or malalignment. 2. Osteopenia and mild osteoarthritic change. Hip X-Ray 04/17/18 20:10 CONCLUSION: Nondisplaced fracture involving the greater trochanteric fragment which extends into the intertrochanteric region. Tibia/Fibula X-Ray 04/17/18 20:10 CONCLUSION: 1. No acute fracture or malalignment. 2. Osteoarthritic change in the knee. Ankle X-Ray 04/17/18 21:07 CONCLUSION: Diffuse soft tissue prominence with no acute fracture or malalignment. Chest X-Ray 04/17/18 21:13 CONCLUSION: No acute cardiopulmonary disease. Hip CT 04/17/18 21:34 CONCLUSION: 1. Nondisplaced fracture through the base of the greater trochanter. 2. Great 1 anterior spondylolisthesis of L5 on S1 of approximately 1 cm with apparent chronic pars defects. There is evidence of an extended greater trochanteric fracture but no clear evidence of an intertrochanteric fracture or extending through the base of the femoral neck or into the subtrochanteric region. This appears to be an isolated greater trochanteric fracture without displacement Assessment and Plan - Assessment and Plan Right hip greater trochanteric fracture. PLAN: Nonweightbearing right leg. This patient is at risk of developing an unstable peritrochanteric fracture which may require internal fixation. Her present fracture is stable and does not require internal fixation. We will watch this closely. If fracture displaces or the patient develops a unstable intertrochanteric fracture, surgical treatment in a delayed fashion may be necessary. Follow-up in 2 weeks
--- NOTE | 2018-04-18 17:01 | P.DS ---
DS: Providers Date of admission: 04/17/18 22:04 Primary care physician: Marcellus Knight Consults: 04/17/18 21:53 Consult to Orthopedic Surgery Routine Consulting Provider: Milton Chery Reason for Consultation: Fracture right femur Notified:: Service Spoke with:: SIA Date Notified:: 04/18/18 Time Notified:: 00:23 Comments:: DELAY DUE TO NOT POPULATING TO PC REQUEST - HAD TO PRINT OM INCOMPLETE LIST THEN NO ANSWER AT CALL CENTER SIA WILL SENT AT 0600 Ordering Provider: CASSIDY DS: Diagnosis Discharge Diagnosis (1) Fracture of femur, right, closed: Status: Acute (2) Sprain of ankle, right: Status: Acute DS: Summary This a 62-year-old female patient with a past medical history which includes cervical radiculopathy, chronic pain, degenerative disc disease, diverticulosis , female stress incontinence, Mary Kate's thyroiditis, hyperlipidemia, nonalcoholic hepatosteatosis and type 2 diabetes mellitus. Patient was in her normal state of health until mechanical fall. Patient states she walked on the edge of her pool when her ankle twisted. She slipped and fell into the pool twisting her knee and jamming her right hip. States her pain was so severe that she had to stay in the pool for an hour before her family member came home. She has not been able to put any weight on the leg. R femur fracture Foot X-Ray 04/17/18 1. No acute fracture or malalignment. 2. Osteopenia and mild osteoarthritic change. Hip X-Ray 04/17/18 Nondisplaced fracture involving the greater trochanteric fragment which extends into the intertrochanteric region. Tibia/Fibula X-Ray 04/17/18 1. No acute fracture or malalignment. 2. Osteoarthritic change in the knee. Ankle X-Ray 04/17/18 Diffuse soft tissue prominence with no acute fracture or malalignment. Hip CT 04/17/18 1. Nondisplaced fracture through the base of the greater trochanter. 2. Great 1 anterior spondylolisthesis of L5 on S1 of approximately 1 cm with apparent chronic pars defects. Consult to Orthopedic surgery - no surgery indicated at this time. Non weight bearing RLE Mary Kate's thyroiditis Continue home Synthroid 200 mcg daily Hyperlipidemia Continue home atorvastatin 80 mg at bedtime Diabetes mellitus type 2 At home patient takes Amaryl 5 mg at bedtime and metformin 1000 mg twice daily we will hold oral diabetic medication at this time Patient also takes NovoLog 30 units subcu 3 times daily and [employer] 150 units subcu daily will hold at this time as patient is NPO Accu-Cheks AC at bedtime with sliding scale insulin coverage Time Spent with Patient Total time spent providing and/or coordinating discharge services: Quality: VTE Deep Vein Thrombosis/Pulmonary Embolism Present on Admission: No Exam Narrative Exam Narrative: GENERAL: This is a well-nourished, well-developed patient, in no apparent distress. CARDIOVASCULAR: Regular rate and rhythm without murmurs, gallops, or rubs. RESPIRATORY: Clear to auscultation. Breath sounds equal bilaterally. No wheezes , rales, or rhonchi. GASTROINTESTINAL: Abdomen soft, non-tender, nondistended. Normal active bowel sounds MUSCULOSKELETAL: NEURO: Alert & Oriented DS: Data Labs on day of discharge: Labs from last 24 hours 04/18/18 04/18/18 04/18/18 12:20 09:19 03:54 WBC RBC Hgb Hct MCV MCH MCHC RDW Plt Count MPV Neut % (Auto) Lymph % (Auto) [place] % (Auto) Eos % (Auto) Baso % (Auto) Neut # (Auto) Lymph # (Auto) [place] # (Auto) Eos # (Auto) Baso # (Auto) WBC Differential Differential Comment PT INR APTT Sodium 143 Potassium 3.7 Chloride 107 Carbon Dioxide 28.6 Anion Gap 7 BUN 11 Creatinine 0.53 Estimated GFR Greater than 89 POC Glucose 103 122 H Random Glucose 85 Calcium 8.6 Total Bilirubin AST ALT Alkaline Phosphatase Total Protein Albumin Blood Type Blood Type Recheck Antibody Screen 04/18/18 04/18/18 04/17/18 03:54 03:54 21:42 WBC 5.5 RBC 3.86 L Hgb 12.4 Hct 36.7 MCV 95.3 MCH 32.2 MCHC 33.8 RDW 13.6 Plt Count 152 MPV 8.4 Neut % (Auto) 58.5 Lymph % (Auto) 28.8 [place] % (Auto) 11.0 H Eos % (Auto) 1.3 Baso % (Auto) 0.4 Neut # (Auto) 3.2 Lymph # (Auto) 1.6 [place] # (Auto) 0.6 Eos # (Auto) 0.1 Baso # (Auto) 0.0 WBC Differential . Differential Comment Auto diff final PT 11.8 H INR 1.2 APTT Sodium Potassium Chloride Carbon Dioxide Anion Gap BUN Creatinine Estimated GFR POC Glucose Random Glucose Calcium Total Bilirubin AST ALT Alkaline Phosphatase Total Protein Albumin Blood Type A Positive Blood Type Recheck Required Antibody Screen Negative 04/17/18 04/17/18 04/17/18 21:42 21:42 21:42 WBC 6.2 RBC 3.75 L Hgb 12.3 Hct 35.1 MCV 93.7 MCH 32.8 MCHC 35.0 RDW 13.8 Plt Count 153 MPV 8.6 Neut % (Auto) 76.1 H Lymph % (Auto) 14.7 [place] % (Auto) 8.2 H Eos % (Auto) 0.5 Baso % (Auto) 0.5 Neut # (Auto) 4.7 Lymph # (Auto) 0.9 L [place] # (Auto) 0.5 Eos # (Auto) 0.0 Baso # (Auto) 0.0 WBC Differential . Differential Comment Auto diff final PT 11.8 H INR 1.2 APTT 23.1 L Sodium 142 Potassium 4.1 Chloride 107 Carbon Dioxide 29.2 Anion Gap 6 BUN 13 Creatinine 0.69 Estimated GFR 86 L POC Glucose Random Glucose 144 H Calcium 8.8 Total Bilirubin 0.7 AST 103 H ALT 94 H Alkaline Phosphatase 129 H Total Protein 7.8 Albumin 3.2 L Blood Type Blood Type Recheck Antibody Screen Impressions Foot X-Ray 04/17/18 20:10 CONCLUSION: 1. No acute fracture or malalignment. 2. Osteopenia and mild osteoarthritic change. Hip X-Ray 04/17/18 20:10 CONCLUSION: Nondisplaced fracture involving the greater trochanteric fragment which extends into the intertrochanteric region. Tibia/Fibula X-Ray 04/17/18 20:10 CONCLUSION: 1. No acute fracture or malalignment. 2. Osteoarthritic change in the knee. Ankle X-Ray 04/17/18 21:07 CONCLUSION: Diffuse soft tissue prominence with no acute fracture or malalignment. Chest X-Ray 04/17/18 21:13 CONCLUSION: No acute cardiopulmonary disease. Hip CT 04/17/18 21:34 CONCLUSION: 1. Nondisplaced fracture through the base of the greater trochanter. 2. Great 1 anterior spondylolisthesis of L5 on S1 of approximately 1 cm with apparent chronic pars defects. Discharge Plan Discharge Disposition Patient Disposition: 03 Discharge to SNF Discharge Condition Condition: Stable Discharge Order Discharge Orders: Discharge Order (Routine); Ordered 04/19/18 Ordered By: Marge Arias Discharge Details Anticipated Discharge Date: 04/19/18 Physicians Team ED Provider: Will Dubose ED Midlevel Provider: Deborah Guzman Primary Care Provider: Marcellus Knight Attending Provider: Vinh Madison Other Providers: Milton Chery Rxs /Orders / Referrals /Forms Prescriptions: New sennosides-docusate sodium [Senna Plus] 8.6-50 mg Tablet 1 tab PO BID Qty: 60 RF: 0 Continue atorvastatin 10 mg Tablet 80 mg PO DAILY RF: 0 insulin aspart U-100 [Novolog U-100 Insulin aspart] 100 unit/mL Solution 30 unit SUBCUT TID RF: 0 metformin 1,000 mg Tablet 1,000 mg PO BID RF: 0 losartan 25 mg Tablet 50 mg PO DAILY RF: 0 levothyroxine 200 mcg Tablet 200 mcg PO DAILY RF: 0 glipizide 5 mg Tablet 4 mg PO DAILY RF: 0 insulin degludec [Tresiba FlexTouch U-100] 100 unit/mL (3 mL) Insulin Pen 150 unit SUBCUT DAILY RF: 0 Referrals: Marcellus Knight, D.O. [Primary Care Provider] - See Instructions (Follow up in 1 week) Milton Chery MD [Physician] - See Instructions (Follow-up in 2 weeks. Set appointment before discharge.) Discharge Instructions Additional Instructions: Non weight bearing right lower extremity Status ED Status: Left Department
[2018-04-18] MEDS ORDERED: HYDROmorphone PF Inj 1 MG/ML Ampul IV.PUSH PRN (20:00)
[2018-04-19] MEDS: Levothyroxine 100 MCG Tablet PO SCH (06:02)
--- NOTE | 2018-04-19 07:55 | P.PNOP ---
Subjective Interval history: Moderate pain right hip into groin and buttock. Knee is painful and swollen. Ankle is sore but 'ok'. Questions about activity. Physical Exam Vital signs: Vital Signs 04/18/18 08:00 04/18/18 12:00 04/18/18 16:00 Temperature 99.0 F 99.1 F 98.7 F Pulse Rate 69 76 70 Respiratory Rate 18 18 16 Blood Pressure 121/59 L 123/60 115/57 L Pulse Oximetry 93 L 95 94 L 04/18/18 19:33 04/19/18 00:00 04/19/18 04:00 Temperature 98.9 F 98.1 F 98.9 F Pulse Rate 70 64 67 Respiratory Rate 18 17 17 Blood Pressure 120/56 L 119/58 L 116/70 Pulse Oximetry 93 L 94 L 93 L Intake & Output 04/18/18 04/19/18 04/19/18 18:59 06:59 18:59 Weight 99.79 kg 99.7 kg Other: # Voids 1 2 Date of Last Bowel Movement 04/17/18 04/17/18 Weight On Admission 99.79 kg Narrative: Laying in bed NAD RLE No hip deformity, previously healed incision, mild swelling, no warmth Pain with palpation lateral, pain with any attempted motion Knee shows evidence for large effusion, posterior tenderness, limited motion Distal +motor at, +sens, +nvi, Neg homans - Constitutional no acute distress Results - Labs CBC & Chem 7: 04/18/18 03:54 04/18/18 03:54 Laboratory Results - last 24 hr 04/18/18 04/18/18 04/18/18 09:19 12:20 17:47 POC Glucose 122 H 103 249 H 04/18/18 20:28 POC Glucose 231 H Assessment and Plan - Assessment and Plan Right hip greater trochanteric fracture. Rigtht knee effusion Moderate pain right hip and knee. Nonweightbearing right leg. She is at risk for developing an unstable peritrochanteric fracture. I explained she may come to surgery if this migrates. XR right knee 2 views due to the pain and knee effusion. PO pain control. Follow up in 2 weeks for repeat xrays.
--- NOTE | 2018-04-19 08:55 | XR ---
EXAM DATE: 04/19/2018 8:24 AM EST AGE/SEX: 62 years / Female INDICATIONS: Generalized knee pain from fall. Swelling and effusion. Right nondisplaced fracture inv olving the greater trochanteric fragment which extends into the intertrochanteric region. CLINICAL DATA: This is the patient's initial encounter. Patient reports that signs and symptoms have been present for 3 days and indicates a pain score of 4/10. MEDICAL/SURGICAL HISTORY: None. None. COMPARISON: [facility], TIBIA FIBULA RIGHT 2V, 04/17/2018. . FINDINGS: Bony structures are intact and in normal alignment. Joints are intact. There is a large dense suprapa tellar joint effusion. Mild degenerative osteoarthritis of all 3 compartments. Osseous density is nor mal. Soft tissues are unremarkable. No radiopaque foreign bodies seen. CONCLUSION: 1. No acute fracture. 2. Large dense suprapatellar joint effusion consistent with hemarthrosis. Electronically signed by: Bello Van MD 04/19/2018 8:53 AM EST
[2018-04-19] MEDS: Insulin NovoLOG Aspart Correctional Sugar Inj SQ SCH ×2 (08:56→12:30)
[2018-04-19] MEDS: Senna/Docusate Sodium 8.6/50 MG Tablet PO SCH (08:56)
[2018-04-19 12:50] VITALS: BP 104/56; PULSE 69; TEMP 98.7; O2SAT 93
[2018-04-19 13:29] VITALS: RESP 16
== END 2018-04-19 14:23 ==
LOC: NEPD 19:19 → NEDA 22:04 → N06 04-18 06:52
PROVIDERS: ADMIT Hospitalist; ATTEND Hospitalist
DX: M19.90 Unspecified osteoarthritis, unspecified site; W16.012A Fall into swimming pool striking water surface causing other injury, initial encounter; Y92.34 Swimming pool (public) as the place of occurrence of the external cause; Z79.4 Long term (current) use of insulin; E78.5 Hyperlipidemia, unspecified; X50.1XXA Overexertion from prolonged static or awkward postures, initial encounter; S93.401A Sprain of unspecified ligament of right ankle, initial encounter; S72.111A Displaced fracture of greater trochanter of right femur, initial encounter for closed fracture; E06.3 Autoimmune thyroiditis; G89.29 Other chronic pain; K57.90 Diverticulosis of intestine, part unspecified, without perforation or abscess without bleeding; E11.9 Type 2 diabetes mellitus without complications; M25.461 Effusion, right knee; M43.17 Spondylolisthesis, lumbosacral region; M85.80 Other specified disorders of bone density and structure, unspecified site; K76.0 Fatty (change of) liver, not elsewhere classified